=== PATIENT | male | born 1960 | race Caucasian/White ===

== ENCOUNTER 2016-06-07 19:52 | Emergency (ER) | payer OTHER ==
--- NOTE | 2016-06-07 21:12 | ED NURSING NOTES ---
Clinical Report - Nurses [place] [address] [place] [address] 06/07/2016 19:54 Patient: CHELITA SERRATO TRIAGE Acuity: LEVEL 4. Chief Complaint: LEFT LOWER EXTREMITY PAIN, SWELLING and REDNESS. Alert. No acute distress. AAMIR COMA SCORE: [place] Coma Scale: 15- eyes open spontaneously (4); best verbal response- oriented x 4 (5); best motor response- obeys commands (6). --20:59 Dasha Ruff R.N. 20:47 06/07/16. BP: 143/90. HR: 86. RR: 20. O2 saturation: 100% on room air. Temp: 98.1 F (oral). --20:59 Dasha Ruff R.N. Weight: 99.7 kg stated. Height/Length: 71 inches Per Patient. BMI: 30.7. --20:57 Dasha Ruff R.N. Medications Allopurinol Oral 100 mg, daily. --20:50 Dasha Ruff R.N. Aspir-Low Oral. --20:51 Dasha Ruff R.N. Atorvastatin Calcium Oral 40 mg, at bedtime. --20:51 Dasha Ruff R.N. Colchicine Oral 0.6 mg, daily. --20:51 Dasha Ruff R.N. Digoxin Oral (Tablet 125 mcg). --20:51 Dasha Ruff R.N. Furosemide Oral 40 mg, 2x a day. --20:52 Dasha Ruff R.N. Magnesium Oxide Oral. --20:52 Dasha Ruff R.N. Metoprolol Succinate ER Oral. --20:52 Dasha Ruff R.N. Pantoprazole Sodium Oral 20 mg, daily. --20:52 Dasha Ruff R.N. PredniSONE Oral. --20:54 Dasha Ruff R.N. Entresto. --20:54 Dasha Ruff R.N. Spironolactone Oral 25 mg, daily. --20:55 Dasha Ruff R.N. Medication/allergy information source: the patient. --20:59 Dasha Ruff R.N. Allergies No Known Drug Allergy. --20:55 Dasha Ruff R.N. History Arrived by private vehicle. Historian: patient. Accompanied by family. Primary physician (None). This occurred (2 weeks ago). ( Pt reports he was dx with gout 2 weeks ago at [facility].). PAST MEDICAL HX: Immunizations: status is unknown. SOCIAL HX: Former smoker, end date 1986. No alcohol use or drug use. FALL RISK ASSESSMENT: Fall risk assessment completed. No fall risk identified. NUTRITIONAL RISK ASSESSMENT: The nutritional risk assessment revealed no deficiencies. FUNCTIONAL ASSESSMENT: Functional assessment: no impairments noted. LEARNING NEEDS ASSESSMENT: The learning needs assessment revealed no barriers. SKIN INTEGRITY ASSESSMENT: Skin integrity risk assessment completed. No skin integrity risk identified. --20:59 Dasha Ruff R.N. PROBLEMS: Gout. --20:56 Dasha Ruff R.N. Congestive Heart Failure. --20:57 Dasha Ruff R.N. ADDITIONAL SURGERIES: Cardiac Procedures. --20:57 Dasha Ruff R.N. Assessment GENERAL / NEURO / PSYCH: Alert. Oriented X 4. Appears in no acute distress. Patient appears calm and cooperative. RESPIRATORY: Respirations not labored. Breath sounds within normal limits. CVS: Capillary refill less than 2 seconds. GI / : Abdomen soft and nontender. SKIN: Mucous membranes are pink. Skin is warm and dry. --20:59 Dasha Ruff R.N. Interventions ID band on patient. To treatment room. --20:59 Dasha Ruff R.N. PHYSICAL ASSESSMENT 21:00 06/07/16. To room via wheelchair. GENERAL / NEURO / PSYCH: Oriented X 4. Alert. Appears in no acute distress. EXTREMITIES: Extremity pulses are within normal limits. Neuro-vascular status intact to the extremity. No lower extremity edema. Left dorsal foot: tenderness, swelling and erythema. SKIN: Skin intact. Skin is warm and dry. --21:00 Dasha Ruff R.N. NURSING PROGRESS NOTES Patient identifiers checked. Call light placed in reach. Side rails up x 1. Bed placed in lowest position. Brakes of bed on. --21:00 Dasha Ruff R.N. 21:02 06/07/2016 Hydrocodone-APAP (Hydrocodone-Acetaminophen) PO 5/325 mg Tablets 1 tab given. Allergies verified, confirmed 5 rights and sedative warning given to the patient. --21:12 Dasha Ruff R.N. DISPOSITION / DISCHARGE Departure time: 2119Jun 07 2016. Condition at departure: improved and stable. No learning barriers present. Discharge instructions provided and reviewed with the patient. Reviewed medication(s) side effects, precautions and dosing information. Prescription(s) given to the patient. Patient verbalized understanding. Written instructions provided in Indonesian. The patient was discharged by the physician rehabilitation assistant. He was discharged home and accompanied by family. He left the Emergency Department in a wheelchair and via private vehicle. Family member driving. --22:54 Dasha Ruff R.N. Locked/Released at 06/07/2016 22:55 by Dasha Ruff R.N.
--- NOTE | 2016-06-07 21:12 | ED NURSING NOTES ---
Clinical Report - Nurses [place] [address] [place] [address] 06/07/2016 19:54 Patient: CHELITA SERRATO TRIAGE Acuity: LEVEL 4. Chief Complaint: LEFT LOWER EXTREMITY PAIN, SWELLING and REDNESS. Alert. No acute distress. AAMIR COMA SCORE: [place] Coma Scale: 15- eyes open spontaneously (4); best verbal response- oriented x 4 (5); best motor response- obeys commands (6). --20:59 Dasha Ruff R.N. 20:47 06/07/16. BP: 143/90. HR: 86. RR: 20. O2 saturation: 100% on room air. Temp: 98.1 F (oral). --20:59 Dasha Ruff R.N. Weight: 99.7 kg stated. Height/Length: 71 inches Per Patient. BMI: 30.7. --20:57 Dasha Ruff R.N. Medications Allopurinol Oral 100 mg, daily. --20:50 Dasha Ruff R.N. Aspir-Low Oral. --20:51 Dasha Ruff R.N. Atorvastatin Calcium Oral 40 mg, at bedtime. --20:51 Dasha Ruff R.N. Colchicine Oral 0.6 mg, daily. --20:51 Dasha Ruff R.N. Digoxin Oral (Tablet 125 mcg). --20:51 Dasha Ruff R.N. Furosemide Oral 40 mg, 2x a day. --20:52 Dasha Ruff R.N. Magnesium Oxide Oral. --20:52 Dasha Ruff R.N. Metoprolol Succinate ER Oral. --20:52 Dasha Ruff R.N. Pantoprazole Sodium Oral 20 mg, daily. --20:52 Dasha Ruff R.N. PredniSONE Oral. --20:54 Dasha Ruff R.N. Entresto. --20:54 Dasha Ruff R.N. Spironolactone Oral 25 mg, daily. --20:55 Dasha Ruff R.N. Medication/allergy information source: the patient. --20:59 Dasha Ruff R.N. Allergies No Known Drug Allergy. --20:55 Dasha Ruff R.N. History Arrived by private vehicle. Historian: patient. Accompanied by family. Primary physician (None). This occurred (2 weeks ago). ( Pt reports he was dx with gout 2 weeks ago at [facility].). PAST MEDICAL HX: Immunizations: status is unknown. SOCIAL HX: Former smoker, end date 1986. No alcohol use or drug use. FALL RISK ASSESSMENT: Fall risk assessment completed. No fall risk identified. NUTRITIONAL RISK ASSESSMENT: The nutritional risk assessment revealed no deficiencies. FUNCTIONAL ASSESSMENT: Functional assessment: no impairments noted. LEARNING NEEDS ASSESSMENT: The learning needs assessment revealed no barriers. SKIN INTEGRITY ASSESSMENT: Skin integrity risk assessment completed. No skin integrity risk identified. --20:59 Dasha Ruff R.N. PROBLEMS: Gout. --20:56 Dasha Ruff R.N. Congestive Heart Failure. --20:57 Dasha Ruff R.N. ADDITIONAL SURGERIES: Cardiac Procedures. --20:57 Dasha Ruff R.N. Assessment GENERAL / NEURO / PSYCH: Alert. Oriented X 4. Appears in no acute distress. Patient appears calm and cooperative. RESPIRATORY: Respirations not labored. Breath sounds within normal limits. CVS: Capillary refill less than 2 seconds. GI / : Abdomen soft and nontender. SKIN: Mucous membranes are pink. Skin is warm and dry. --20:59 Dasha Ruff R.N. Interventions ID band on patient. To treatment room. --20:59 Dasha Ruff R.N. PHYSICAL ASSESSMENT 21:00 06/07/16. To room via wheelchair. GENERAL / NEURO / PSYCH: Oriented X 4. Alert. Appears in no acute distress. EXTREMITIES: Extremity pulses are within normal limits. Neuro-vascular status intact to the extremity. No lower extremity edema. Left dorsal foot: tenderness, swelling and erythema. SKIN: Skin intact. Skin is warm and dry. --21:00 Dasha Ruff R.N. NURSING PROGRESS NOTES Patient identifiers checked. Call light placed in reach. Side rails up x 1. Bed placed in lowest position. Brakes of bed on. --21:00 Dasha Ruff R.N. 21:02 06/07/2016 Hydrocodone-APAP (Hydrocodone-Acetaminophen) PO 5/325 mg Tablets 1 tab given. Allergies verified, confirmed 5 rights and sedative warning given to the patient. --21:12 Dasha Ruff R.N. DISPOSITION / DISCHARGE Departure time: 2119Jun 07 2016. Condition at departure: improved and stable. No learning barriers present. Discharge instructions provided and reviewed with the patient. Reviewed medication(s) side effects, precautions and dosing information. Prescription(s) given to the patient. Patient verbalized understanding. Written instructions provided in [place]an. The patient was discharged by the physician prosthetics assistant. He was discharged home and accompanied by family. He left the Emergency Department in a wheelchair and via private vehicle. Family member driving. --22:54 Dasha Ruff R.N. Locked/Released at 06/07/2016 22:55 by Dasha Ruff R.N.
--- NOTE | 2016-06-07 21:12 | ED ORDER SUMMARY ---
..... Patient: CHELITA SERRATO OrderSheet [facility] VisitID: [id number] [address] [place] [address] 55y, M Registration Date/Time: 06/07/2016 ORDER SHEET Weight: 99.7 kg (stated) Allergies: No Known Drug Allergy GENERAL ORDERS: MEDICATION ORDERS: Hydrocodone-APAP PO 5/325 mg (NOW, HIGH ALERT MEDICATION) (20:59 06/07/2016 Delicia Pires) (Ack 21:00 MWinterer R.N.) (21:12 MWinterer R.N.) IV FLUIDS: ORDER SHEET NOTES: [Electronically signed by Dasha Ruff R.N. (22:55 06/07/2016)] [Electronically signed by Oksana Esteban P.A.-C (23:08 06/07/2016)] [Electronically locked/signed by Dasha Ruff R.N. (22:55 06/07/2016)]
--- NOTE | 2016-06-07 21:12 | ED CLINICAL REPORT ---
Clinical Report - Physicians/Mid Levels [facility] [address] [place] [address] 06/07/2016 19:54 Patient: CHELITA SERRATO Time Seen: 20:44 Jun 07 2016. Arrived- By private vehicle. Historian- patient. HISTORY OF PRESENT ILLNESS Chief Complaint: Injury to the left foot. 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 Pain is not mild. Patient denies injury to the head. (patient reports left great toe pain, just proximal to the area, history of similar, recent diagnosis of gout, taking medications for such. recently finished dose of prednisone. Taking other medications he believes. Denies any alcohol or seafood.). REVIEW OF SYSTEMS No tingling or skin laceration. He has no pain on weight bearing. All systems otherwise negative, except as recorded above. SOCIAL HISTORY Former smoker. No alcohol use or drug use. ADDITIONAL NOTES The nursing notes have been reviewed. PHYSICAL EXAM Vital Signs: 06/07/2016 20:47 BP: 143/90. HR: 86. RR: 20. O2 saturation: 100%. Temp: 98.1 F. Appearance: Alert. Head: Head atraumatic. ENT: Ears normal. Nose normal. Neck: Normal inspection. CVS: Normal heart rate and rhythm. Heart sounds normal. Respiratory: No respiratory distress. Breath sounds normal. Abdomen: No visible injury. Soft. Bowel sounds normal. No abdominal tenderness or rebound tenderness. Back: Normal inspection. Skin: Skin intact. Extremities: Left great toe-second toe web space: mild tenderness. No swelling, laceration, abrasion or puncture wound. No limitation in movement. Gait: Limping gait. Neuro, Vascular and Tendons: Motor intact. Neuro: Oriented X 3. No motor deficit. PROGRESS AND PROCEDURES Course of Care: Pt with h/o gout, appears to not be taking colchecine. Does not take allopurinol. Recent use of prednisone. Will start again on colchecine and pain control. NO erythema, no trauma, given prior similar pain with h/o gout suspect the same. 06/07/2016 20:47 BP: 143/90. HR: 86. RR: 20. O2 saturation: 100%. Temp: 98.1 F. Patient is stable. Physical exam findings are improved. Symptoms better. Patient/family counseled. Disposition: Discharged. Condition: good. CLINICAL IMPRESSION Acute gout. INSTRUCTIONS Elevate affected areas above chest level. You may walk and bear weight as tolerated. (elevate avoid seafood). Prescription Medications: Hydrocodone/APAP 5mg / 325mg: take 1 orally every 6 hours as needed for pain. Dispense ten (10). No refill. Colchicine 0.6 mg tablets: take 1 tablet orally for 10 days, as needed for pain. Dispense ten (10). No refills. Follow-up: Follow up with your doctor in three days. Understanding of the discharge instructions verbalized by patient. (Electronically signed by Oksana Esteban P.A.-C 06/07/2016 23:08)
--- NOTE | 2016-06-07 21:12 | ED CLINICAL REPORT ---
Clinical Report - Physicians/Mid Levels [facility] [address] [place] [place] [address] 06/07/2016 19:54 Patient: CHELITA SERRATO Time Seen: 20:44 Jun 07 2016. Arrived- By private vehicle. Historian- patient. HISTORY OF PRESENT ILLNESS Chief Complaint: Injury to the left foot. 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 Pain is not mild. Patient denies injury to the head. (patient reports left great toe pain, just proximal to the area, history of similar, recent diagnosis of gout, taking medications for such. recently finished dose of prednisone. Taking other medications he believes. Denies any alcohol or seafood.). REVIEW OF SYSTEMS No tingling or skin laceration. He has no pain on weight bearing. All systems otherwise negative, except as recorded above. SOCIAL HISTORY Former smoker. No alcohol use or drug use. ADDITIONAL NOTES The nursing notes have been reviewed. PHYSICAL EXAM Vital Signs: 06/07/2016 20:47 BP: 143/90. HR: 86. RR: 20. O2 saturation: 100%. Temp: 98.1 F. Appearance: Alert. Head: Head atraumatic. ENT: Ears normal. Nose normal. Neck: Normal inspection. CVS: Normal heart rate and rhythm. Heart sounds normal. Respiratory: No respiratory distress. Breath sounds normal. Abdomen: No visible injury. Soft. Bowel sounds normal. No abdominal tenderness or rebound tenderness. Back: Normal inspection. Skin: Skin intact. Extremities: Left great toe-second toe web space: mild tenderness. No swelling, laceration, abrasion or puncture wound. No limitation in movement. Gait: Limping gait. Neuro, Vascular and Tendons: Motor intact. Neuro: Oriented X 3. No motor deficit. PROGRESS AND PROCEDURES Course of Care: Pt with h/o gout, appears to not be taking colchecine. Does not take allopurinol. Recent use of prednisone. Will start again on colchecine and pain control. NO erythema, no trauma, given prior similar pain with h/o gout suspect the same. 06/07/2016 20:47 BP: 143/90. HR: 86. RR: 20. O2 saturation: 100%. Temp: 98.1 F. Patient is stable. Physical exam findings are improved. Symptoms better. Patient/family counseled. Disposition: Discharged. Condition: good. CLINICAL IMPRESSION Acute gout. INSTRUCTIONS Elevate affected areas above chest level. You may walk and bear weight as tolerated. (elevate avoid seafood). Prescription Medications: Hydrocodone/APAP 5mg / 325mg: take 1 orally every 6 hours as needed for pain. Dispense ten (10). No refill. Colchicine 0.6 mg tablets: take 1 tablet orally for 10 days, as needed for pain. Dispense ten (10). No refills. Follow-up: Follow up with your doctor in three days. Understanding of the discharge instructions verbalized by patient. (Electronically signed by Oksana Esteban P.A.-C 06/07/2016 23:08)
--- NOTE | 2016-06-07 21:12 | ED ORDER SUMMARY ---
..... Patient: CHELITA SERRATO OrderSheet [facility] VisitID: [id number] [address] [place] [address] 55y, M Registration Date/Time: 06/07/2016 ORDER SHEET Weight: 99.7 kg (stated) Allergies: No Known Drug Allergy GENERAL ORDERS: MEDICATION ORDERS: Hydrocodone-APAP PO 5/325 mg (NOW, HIGH ALERT MEDICATION) (20:59 06/07/2016 Delicia Pires) (Ack 21:00 MWinterer R.N.) (21:12 MWinterer R.N.) IV FLUIDS: ORDER SHEET NOTES: [Electronically signed by Dasha Ruff R.N. (22:55 06/07/2016)] [Electronically signed by Oksana Esteban P.A.-C (23:08 06/07/2016)] [Electronically locked/signed by Dasha Ruff R.N. (22:55 06/07/2016)]
--- NOTE | 2016-06-07 23:08 | ED MAR SUMMARY ---
..... Medication Administration Record [address] [place] [address] Patient: CHELITA SERRATO Visit ID: [id number] 55y, M Weight: 99.7 kg Height/Length: 71 in BMI: 30.7 ALLERGIES: No Known Drug Allergy Given 21:02 06/07/2016 Dasha Ruff R.N. Medication Administered: HYDROCODONE-APAP [PO] (HYDROCODONE-ACETAMINOPHEN), Dose: 1 tab 5/325 mg Tablets PO. Medication Ordered: Hydrocodone-APAP PO 5/325 mg (NOW, HIGH ALERT MEDICATION).
--- NOTE | 2016-06-07 23:08 | ED MED RECONCILIATION SUMMARY ---
Patient: CHELITA SERRATO Medication Reconciliation Report [facility] VisitID: [id number] [address] [place] [address] 55y, M Registration Date/Time: 06/07/2016 Weight: 99.7 kg Height/Length: 71 in. BMI: 30.7 ALLERGIES: No Known Drug Allergy The patient's Home Medications are listed below: THE FOLLOWING MEDICATIONS NEED TO BE RECONCILED: Allopurinol Oral 100 mg, daily Aspir-Low Oral Atorvastatin Calcium Oral 40 mg, at bedtime Colchicine Oral 0.6 mg, daily Digoxin Oral (125 mcg) Entresto Furosemide Oral 40 mg, 2x a day Magnesium Oxide Oral Metoprolol Succinate ER Oral Pantoprazole Sodium Oral 20 mg, daily PredniSONE Oral Spironolactone Oral 25 mg, daily The source(s) of the original Home Medication information: patient The following Medications were given to the patient in the Emergency Department: Hydrocodone-APAP [PO] PO 1 tab, administered: 06/07/2016 9:02:00 PM The following Medications were prescribed to the patient: Hydrocodone/APAP 5mg / 325mg: take 1 orally every 6 hours as needed for pain. Dispense ten (10). No refill. -- Oksana Esteban P.A.-C Colchicine 0.6 mg tablets: take 1 tablet orally for 10 days, as needed for pain. Dispense ten (10). No refills. -- Oksana Esteban P.A.-C
--- NOTE | 2016-06-07 23:08 | ED MAR SUMMARY ---
..... Medication Administration Record [address] [place] [address] Patient: CHELITA SERRATO Visit ID: [id number] 55y, M Weight: 99.7 kg Height/Length: 71 in BMI: 30.7 ALLERGIES: No Known Drug Allergy Given 21:02 06/07/2016 Dasha Ruff R.N. Medication Administered: HYDROCODONE-APAP [PO] (HYDROCODONE-ACETAMINOPHEN), Dose: 1 tab 5/325 mg Tablets PO. Medication Ordered: Hydrocodone-APAP PO 5/325 mg (NOW, HIGH ALERT MEDICATION).
--- NOTE | 2016-06-07 23:08 | ED DISCHARGE INSTRUCTIONS ---
Patient: CHELITA SERRATO General Instructions [facility] VisitID: [id number] [place] [address] 55y, M Registration Date/Time: 06/07/2016 Acute gout. INSTRUCTIONS Elevate affected areas above chest level. You may walk and bear weight as tolerated. (elevate avoid seafood). Prescription Medications: Hydrocodone/APAP 5mg / 325mg: take 1 orally every 6 hours as needed for pain. Dispense ten (10). No refill. Colchicine 0.6 mg tablets: take 1 tablet orally for 10 days, as needed for pain. Dispense ten (10). No refills. Follow-up: Follow up with your doctor in three days. Understanding of the discharge instructions verbalized by patient. ADDITIONAL INFORMATION Gout Gout or "gouty arthritis" is an inflammation of a joint due to a build-up of gout crystals in the joint fluid. This occurs when there is an excess uric acid (a normal waste product) in the body. Uric acid builds up in the body when the kidneys are unable to filter enough of it from the blood. This may occur with aging or kidney disease. Gout occurs more often in persons with obesity, diabetes, hypertension, high fats in the blood. It may be present in other family members. Alcohol and certain foods (such as shellfish and alcohol) may increase uric acid levels in the blood and cause a gout attack. Gout causes a hot, red, swollen and painful joint. If you have had one episode of gout, you are likely to have another. An acute attack of gout can be treated with anti-inflammatory and other medicine. If these attacks become frequent it may be necessary to take a daily medicine to help the kidney remove uric acid from the body. Home Care: Apply an ice pack (ice cubes in a plastic bag, wrapped in a towel) over the injured area for 20 minutes every 1-2 hours the first day for pain relief. Continue this 3-4 times a day until the pain and swelling goes away. Avoid alcohol and foods listed below (see Prevention) during a gout attack. Drink extra fluid to help flush the uric acid through your kidneys. Rest painful joints. If gout affects the joints of your foot or leg, you may want to use crutches for the first few days to keep from bearing weight on the foot or leg. Take anti-inflammatory medicine as directed. You may be prescribed Indocin (indomethacin), or ijko-wjs-rdkdzws drugs such as ibuprofen (Motrin, Advil) or naproxen (Naprosyn or Aleve). Tylenol will not be as effective since it is not an anti-inflammatory drug. If narcotic pain medicines have been prescribed, they should be used in addition to the anti-inflammatory drugs and only for severe pain. Avoid aspirin since this may slow down the flushing of the uric acid through your kidneys. Preventing Future Attacks: Minimize or avoid alcohol use. Excess alcohol intake can cause a gout attack. Foods high in purine form uric acid in the body and increase your risk for a gout attack. Therefore, avoid the following foods: certain seafoods (anchovies, sardines, shrimp, scallops, jeong, mackerel); wild game, meat extracts and meat gravies; organ foods (kidney, liver, calf brain, sweetbreads). Avoid drinks with fructose (a type of sugar). Limit the following foods to one serving a day: red meat and pork, fish, poultry, dried beans and peas, asparagus, mushrooms, cauliflower and spinach. If you are overweight, this is a risk factor and you should talk to your doctor about a weight reduction plan. However, avoid fasting or extreme low calorie diets (less than 900 mary carmen/day) which will increase uric acid levels in the body. If you are diabetic or have high blood pressure, work with your doctor to achieve control of these conditions. Avoid injury to the involved joint since this can lead to a gout attack. Colchicine can be effective in stopping a gout attack. If you were given a prescription of this medicine for future use, begin it at the first sign of an attack. Colchicine may cause nausea, vomiting, diarrhea and other side effects. Follow Up with your doctor as advised or if you are not improving after three days of treatment. Get Prompt Medical Attention if any of the following occur: Fever over 100.4F (38.0C) with worsening joint pain Increasing redness around the joint Pain developing in another joint Repeated vomiting, abdominal pain, or blood in the vomit or stool (black or red color) Hydrocodone Bitartrate, Acetaminophen Oral tablet What is this medicine? ACETAMINOPHEN; HYDROCODONE (a set a ADDY clarke fen; марина droe KOE done) is a pain reliever. It is used to treat mild to moderate pain. How should I use this medicine? Take this medicine by mouth. Swallow it with a full glass of water. Follow the directions on the prescription label. If the medicine upsets your stomach, take the medicine with food or milk. Do not take more than you are told to take. Talk to your veneer glue jointer feedback regarding the use of this medicine in children. This medicine is not approved for use in children. What side effects may I notice from receiving this medicine? Side effects that you should report to your doctor or health social worker palliative care as soon as possible: allergic reactions like skin rash, itching or hives, swelling of the face, lips, or tongue breathing problems confusion feeling faint or lightheaded, falls stomach pain yellowing of the eyes or skin Side effects that usually do not require medical attention (report to your doctor or health social worker palliative care if they continue or are bothersome): nausea, vomiting stomach upset What may interact with this medicine? alcohol antihistamines isoniazid medicines for depression, anxiety, or psychotic disturbances medicines for sleep muscle relaxants naltrexone narcotic medicines (opiates) for pain phenobarbital ritonavir tramadol What if I miss a dose? If you miss a dose, take it as soon as you can. If it is almost time for your next dose, take only that dose. Do not take double or extra doses. Where should I keep my medicine? Keep out of the reach of children. This medicine can be abused. Keep your medicine in a safe place to protect it from theft. Do not share this medicine with anyone. Selling or giving away this medicine is dangerous and against the law. Store at room temperature between 15 and 30 degrees C (59 and 86 degrees F). Protect from light. Keep container tightly closed. Throw away any unused medicine after the expiration date. Discard unused medicine and used packaging carefully. Pets and children can be harmed if they find used or lost packages. What should I tell my health care provider before I take this medicine? They need to know if you have any of these conditions: brain tumor Crohn's disease, inflammatory bowel disease, or ulcerative colitis drink more than 3 alcohol-containing drinks per day drug abuse or addiction head injury heart or circulation problems kidney disease or problems going to the bathroom liver disease lung disease, asthma, or breathing problems an unusual or allergic reaction to acetaminophen, hydrocodone, other opioid analgesics, other medicines, foods, dyes, or preservatives or trying to get breast-feeding What should I watch for while using this medicine? Tell your doctor or health social worker palliative care if your pain does not go away, if it gets worse, or if you have new or a different type of pain. You may develop tolerance to the medicine. Tolerance means that you will need a higher dose of the medicine for pain relief. Tolerance is normal and is expected if you take the medicine for a long time. Do not suddenly stop taking your medicine because you may develop a severe reaction. Your body becomes used to the medicine. This does NOT mean you are addicted. Addiction is a behavior related to getting and using a drug for a non-medical reason. If you have pain, you have a medical reason to take pain medicine. Your doctor will tell you how much medicine to take. If your doctor wants you to stop the medicine, the dose will be slowly lowered over time to avoid any side effects. You may get drowsy or dizzy when you first start taking the medicine or change doses. Do not drive, use machinery, or do anything that may be dangerous until you know how the medicine affects you. Stand or sit up slowly. There are different types of narcotic medicines (opiates) for pain. If you take more than one type at the same time, you may have more side effects. Give your health care provider a list of all medicines you use. Your doctor will tell you how much medicine to take. Do not take more medicine than directed. Call emergency for help if you have problems breathing. The medicine will cause constipation. Try to have a bowel movement at least every 2 to 3 days. If you do not have a bowel movement for 3 days, call your doctor or health social worker palliative care. Too much acetaminophen can be very dangerous. Do not take Tylenol (acetaminophen) or medicines that contain acetaminophen with this medicine. Many non-prescription medicines contain acetaminophen. Always read the labels carefully. You have been given the following additional information: Gouty Arthritis Hydrocodone Bitartrate, Acetaminophen Oral tablet You may walk and bear weight as tolerated. (Electronically signed by Oksana Esteban P.A.-C 06/07/2016 23:08)
--- NOTE | 2016-06-07 23:08 | ED MED RECONCILIATION SUMMARY ---
Patient: CHELITA SERRATO Medication Reconciliation Report [facility] VisitID: [id number] [address] [place] [address] 55y, M Registration Date/Time: 06/07/2016 Weight: 99.7 kg Height/Length: 71 in. BMI: 30.7 ALLERGIES: No Known Drug Allergy The patient's Home Medications are listed below: THE FOLLOWING MEDICATIONS NEED TO BE RECONCILED: Allopurinol Oral 100 mg, daily Aspir-Low Oral Atorvastatin Calcium Oral 40 mg, at bedtime Colchicine Oral 0.6 mg, daily Digoxin Oral (125 mcg) Entresto Furosemide Oral 40 mg, 2x a day Magnesium Oxide Oral Metoprolol Succinate ER Oral Pantoprazole Sodium Oral 20 mg, daily PredniSONE Oral Spironolactone Oral 25 mg, daily The source(s) of the original Home Medication information: patient The following Medications were given to the patient in the Emergency Department: Hydrocodone-APAP [PO] PO 1 tab, administered: 06/07/2016 9:02:00 PM The following Medications were prescribed to the patient: Hydrocodone/APAP 5mg / 325mg: take 1 orally every 6 hours as needed for pain. Dispense ten (10). No refill. -- Oksana Esteban P.A.-C Colchicine 0.6 mg tablets: take 1 tablet orally for 10 days, as needed for pain. Dispense ten (10). No refills. -- Oksana Esteban P.A.-C
== END 2016-06-07 21:20 | disposition home or self-care (01) ==
LOC: ED SRH 19:52
DX: M10.9 Gout, unspecified (principal)